=== PATIENT | female | born 1995 | race American Indian/Alaskan Native ===

== ENCOUNTER 2019-01-04 00:39 | Inpatient (IN) | payer OTHER, MEDICAID ==
[2019-01-04] MEDS ORDERED: MAGNESIUM SULFATE 40GM/1000ML 40 GM/1,000 ML BAG IV ONE (01:53)
[2019-01-04] MEDS ORDERED: APRESOLINE ONE (01:54)
[2019-01-04] MEDS ORDERED: LACTATED RINGERS 1,000 ML ONE (01:54)
[2019-01-04] MEDS ORDERED: MAGNESIUM SULFATE 4GM/100ML 4 GM/100 ML BAG IV ONE ×2 (01:54→04:42)
[2019-01-04 02:30] LABS: INR 0.85 (0.87-1.13); Partial Thromboplastin Time 26.4 Sec. (24.2-36.6)
[2019-01-04 02:43] LABS: Amorphous Crystals,Urine 3+; Amphetamine Screen,Urine PRESUMPTIVE NEGATIVE; Benzodiazepines Screen,Urine PRESUMPTIVE NEGATIVE; Bilirubin,Urine NEG (Negative); Blood,Urine SM (Negative); Cannabinoid Screen,Urine PRESUMPTIVE NEGATIVE; Cocaine Screen,Urine PRESUMPTIVE NEGATIVE; Color,Urine Yellow (Yellow); Hyaline Casts,Urine 45 /LPF; Methadone Screen,Urine PRESUMPTIVE NEGATIVE; Mucus,Urine 3+ /HPF; Opiate Screen,Urine PRESUMPTIVE NEGATIVE; Urobilinogen,Urine < 2.0 mg/dL (<2.0)
[2019-01-04 02:43] LABS: Hematocrit 39.8 % (30.3-42.9); Hemoglobin 13.6 gm/dl (10.1-14.3); Mean Corpuscular HGB Conc 34 % (30-34); Mean Corpuscular Volume 85 fl (79-97); Platelet Count 329 K/mm3 (140-440); Red Cell Distribution Width 14.3 % (13.2-15.2)
[2019-01-04] MEDS ORDERED: NORMODYNE IV ONE ×5 (02:44→14:47)
[2019-01-04 02:48] LABS: Hepatitis C Virus Antibody Non-Reactive (NonReactive)
[2019-01-04 02:49] LABS: Protein,Urine >500 mg/dL (Negative)
[2019-01-04 02:50] LABS: Alanine Aminotransferase 126 units/L (7-56)
[2019-01-04 02:53] LABS: Uric Acid 6.5 mg/dL (3.5-7.6)
[2019-01-04] MEDS: LACTATED RINGERS 1,000 ML IV SCH ×2 (02:55→07:00)
[2019-01-04] MEDS ORDERED: CELESTONE SOLUSPAN IM ONE (03:51)
[2019-01-04] MEDS ORDERED: STADOL IV ONE (04:44)
[2019-01-04] MEDS ORDERED: APRESOLINE IV ONE (04:45)
[2019-01-04] MEDS ORDERED: APRESOLINE IV PRN (04:45)
[2019-01-04] MEDS: MAGNESIUM SULFATE 40GM/1000ML 40 GM/1,000 ML BAG IV SCH (06:58)
--- NOTE | 2019-01-04 07:11 | Ultrasound Report ---
PROCEDURE: US OB >= 14 WEEKS FETUS TECHNIQUE: Routine transabdominal imaging was obtained of the pelvis with Doppler interrogation of t he fetus. HISTORY: well being COMPARISONS: None FINDINGS: The fetus is in cephalic presentation. The heart rate is 140 BPM. The MICHAEL is 10.7 cm which is n ormal. The placenta is anterior in position and is grade 2. There is no evidence of placental abrupti on. There are no gross anomalies involving the stomach, kidneys, bladder, diaphragm, four-chamb er view the heart or abdominal CORD insertion. Imaging of the spine and brain is limited because of t he positioning of the fetus. The estimated sonographic age is 33 weeks 3 days. The EDC is 02/19/2019. The estimated weight is 1723 g. The measured indices are unremarkable for the HC/AC ratio at 1.24 which is slightly elevated. The FL/BPD ratio is also diminished at 63.7. The cervix is close d. It measures 4.3 cm in length. IMPRESSION: Cephalic presentation, the heart rate is 140 BPM. No evidence of placental abruption. No gross anomalies. The neural anatomy is not well seen because of positioning of the fetus. Estimated sonographic age is 33 weeks 3 days. The EDC is 02/19/2019. Follow-up study recommended given the above the index ratios as described.. This document is electronically signed by Marciano Cooper MD., January 04 2019 07:09:37 AM ET
--- NOTE | 2019-01-04 07:52 | History and Physical Report ---
History of Present Illness Date of examination: 01/04/19 Date of admission: 01/04/2019 Chief complaint: abdominal pain History of present illness: 23y/o @ 32+4 weeks presents with the complaint of abdominal pain and lower extremity edema. The patient receives care @ [facility]. She states her had been uncomplicated until a few weeks ago she developed slightly elevated blood pressures that the OB was monitoring. Today in triage, the patient's blood pressures were severely elevated and her LFTs were abnormal. OB ultrasound is unremarkable. Patient is currently receiving IV anti- hypertensives and magnesium. She denies leakage of fluid or vaginal bleeding. One dose of steroids has been administered. Past History Past Medical History: no pertinent history Past Surgical History: no surgical history Social history: single - Obstetrical History Expected Date of Delivery: 02/25/19 Actual Gestation: 32 Week(s) 4 Day(s) : 2 Para: 0 Hx # Term Pregnancies: 0 Number of Pregnancies: 0 Spontaneous Abortions: 0 Induced : 1 Number of Living Children: 0 Medications and Allergies Allergies Allergy/AdvReac Type Severity Reaction Status Date / Time No Known Allergies Allergy Verified 01/04/19 01:36 Active Meds: Active Medications Betamethasone Acet/Betameth SodPhos (Celestone Soluspan) 12 mg IM Q24HR JUNIOR Stop: 01/05/19 10:01 Last Admin: 01/04/19 03:57 Dose: 12 mg Documented by: Hydralazine HCl (Apresoline) 10 mg IV Q10MIN PRN PRN Reason: elevated b/p Lactated Ringer's (Lactated Ringers) 1,000 mls @ 75 mls/hr IV DIRECT JUNIOR Last Admin: 01/04/19 07:00 Dose: 75 mls/hr Documented by: Magnesium Sulfate (Magnesium Sulfate 40gm/1000ml) 40 gm in 1,000 mls @ 50 mls/hr IV DIRECT JUNIOR Last Admin: 01/04/19 06:58 Dose: 2 gm/hr, 50 mls/hr Documented by: Review of Systems All systems: negative Gastrointestinal: abdominal pain - Vital Signs Vital signs: Vital Signs Pulse Pulse Ox 89 98 01/04/19 01:16 01/04/19 01:16 Temp Pulse Resp BP Pulse Ox 97.4 F L 102 H 18 152/102 96 01/04/19 02:12 01/04/19 07:44 01/04/19 05:06 01/04/19 07:32 01/04/19 07:44 - Physical Exam Breasts: Positive: deferred Cardiovascular: Regular rate Lungs: Positive: Clear to auscultation Results Result Diagrams: 01/04/19 02:00 01/04/19 02:00 Abnormal lab results 01/04/19 01/04/19 01/04/19 Range/Units 02:00 02:00 02:00 WBC 14.2 H (4.5-11.0) K/mm3 PT 12.1 L (12.2-14.9) Sec. INR 0.85 L (0.87-1.13) AST 205 H (5-40) units/L ALT 126 H (7-56) units/L Lactate Dehydrogenase 1419 H (91-180) units/L Urine WBC (Auto) (0.0-6.0) /HPF 01/04/19 Range/Units 02:21 WBC (4.5-11.0) K/mm3 PT (12.2-14.9) Sec. INR (0.87-1.13) AST (5-40) units/L ALT (7-56) units/L Lactate Dehydrogenase (91-180) units/L Urine WBC (Auto) 28.0 H (0.0-6.0) /HPF All other labs normal. Assessment and Plan - Patient Problems (1) HELLP syndrome Current Visit: Yes Status: Acute Plan to address problem: will redraw labs to confirm findings delivery has been discussed with patient (2) Abdominal pain affecting Current Visit: Yes Status: Acute
[2019-01-04 08:27] LABS: Hemoglobin 13.3 gm/dl (10.1-14.3); Mean Corpuscular HGB Conc 33 % (30-34); Mean Corpuscular Volume 86 fl (79-97); Platelet Count 148 K/mm3 (140-440); Red Blood Count 4.65 M/mm3 (3.65-5.03)
[2019-01-04 08:53] LABS: Alanine Aminotransferase 255 units/L (7-56); Albumin 3.3 g/dL (3.9-5); BUN/Creatinine Ratio 13; Blood Urea Nitrogen 8 mg/dL (7-17); Calcium 9.2 mg/dL (8.4-10.2); Hemolysis Index 19; Uric Acid 6.8 mg/dL (3.5-7.6)
[2019-01-04] MEDS ORDERED: PEPCID IV ONE (09:09)
[2019-01-04] MEDS ORDERED: BICITRA PO ONE (09:09)
[2019-01-04] MEDS ORDERED: REGLAN IV ONE (09:09)
--- NOTE | 2019-01-04 09:09 | Event Note ---
Date: 01/04/19 Repeat labs reviewed with worsening of clinical status. Will proceed with primary delivery gonzales. Charge nurse made aware.
[2019-01-04] MEDS ORDERED: ZOFRAN IV PRN (09:32)
[2019-01-04] MEDS ORDERED: NARCAN 0.4 MG/1 ML IV PRN ×2 (09:32→11:12)
[2019-01-04] MEDS ORDERED: PHENERGAN PO PRN (09:32)
[2019-01-04] MEDS ORDERED: BENADRYL IV PRN (09:32)
[2019-01-04] MEDS ORDERED: DILAUDID IV PRN ×2 (09:32)
[2019-01-04] MEDS ORDERED: PHENERGAN PR PRN (09:32)
[2019-01-04] MEDS ORDERED: SUBLIMAZE ONE (09:50)
--- NOTE | 2019-01-04 09:58 | Procedure Note ---
OB Delivery Note - Delivery Date of Delivery: 01/04/19 Surgeon: ANABEL SEVERINO Estimated blood loss: other (800ml) - Section Preop diagnosis: other Postop diagnosis: same section procedure: section, primary low transverse Disposition: PACU Complications: none - A at 1 minute: 8 at 5 minutes: 9 Infant Gender: Male (weight of 4 lbs. 2 oz.)
[2019-01-04] MEDS ORDERED: ANCEF/STERILE WATER 2 GM/20 ML 2 GM/20 ML SYRINGE IV NR (10:00)
[2019-01-04] MEDS ORDERED: LACTATED RINGERS 1,000 ML IV SCH (10:00)
[2019-01-04] MEDS ORDERED: CELESTONE SOLUSPAN IM SCH (10:00)
[2019-01-04] MEDS ORDERED: PITOCin/NS 20 UNIT/1000ML DRIP 20 UNITS/1,000 ML BAG IV SCH ×2 (10:00→12:00)
[2019-01-04] MEDS ORDERED: SODIUM CHLORIDE FLUSH SYRINGE 10 ML IV NR ×2 (10:00→12:00)
--- NOTE | 2019-01-04 10:00 | Operative Report ---
Operative Report Operative Report: Date of surgery: 01/04/2019 Preoperative diagnosis: at 32+4 weeks; HELLP syndrome; Postoperative diagnosis: Same as above Procedure: Primary low-transverse delivery Surgeon: Yasmin Melara M.D. Anesthesia: Regional Estimated blood loss: 800 mL IV fluids 800 mL Urine output 100 mL Findings: Liveborn male with Apgars of 8 and 9 weight 4 lbs. 2 oz. Indications: 23-year-old at 32+4 weeks who presents with onset of right upper quadrant pain and was found to have severely elevated blood pressures. Her clinical status was consistent with HELLP syndrome. Procedure: The patient was taken to the operating room and given regional anesthesia without complication. She was prepped and draped in a normal sterile fashion. A Pfannenstiel skin incision was made down to layer the fascia which was nicked in the midline extended laterally with the Bovie cautery. The superior aspect of the rectus fascia was grasped with Guerline clamps x2 and the rectus muscles off sharply. This was done in inferior fashion as well. The rectus muscle midline and peritoneum entered bluntly. An Dustin retractor was then inserted. A bladder blade was placed. The vesicouterine peritoneum was then entered sharply with Metzenbaum scissors. A bladder flap was created digitally. A low transverse uterine incision was then made and extended digitally. There was clear fluid upon entry into the uterine cavity. The head was delivered through the incision with fundal pressure. Cord clamping was delayed. The cord was clamped and cut x2 and was passed off to pediatrics. The placenta was then manually extracted. The uterus was then exteriorized and cleared of clots and debris. The uterine incision was then closed in a running locked fashion with 0 Vicryl additional imbricating stitch was applied for 2 layer closure. The posterior cul-de-sac was then copiously irrigated. The uterus was replaced back into the abdomen and pelvis were the gutters were then irrigated. The Dustin retractor was then removed. The peritoneum was then reapproximated with 3-0 Vicryl incorporating the rectus muscle. The fascia was then closed with 0 Vicryl in a running fashion. The skin was then reapproximated with 3-0 Monocryl on a Santy needle subcuticular fashion. Steri-Strips to place across the incision and a Crede procedures performed at the end of the surgery. A pressure dressing was applied to the incision. The surgery productive of a liveborn male infant with Apgars of 8 and 9 weight 4 lbs. 2 oz. The patient was taken to the recovery room in stable condition. All sponge laps and needle counts correct x2.
[2019-01-04] MEDS ORDERED: ANCEF IV ONE (10:10)
[2019-01-04] MEDS ORDERED: TORADOL ONE (10:48)
[2019-01-04] MEDS ORDERED: IBUPROFEN PO PRN (11:12)
[2019-01-04] MEDS ORDERED: TYLENOL PO PRN (11:12)
[2019-01-04] MEDS ORDERED: TUCKS PAD TP PRN (11:12)
[2019-01-04] MEDS ORDERED: LANSINOH TP PRN (11:12)
--- NOTE | 2019-01-04 11:38 | Anesthesia Consultation ---
Anesthesia Consult and Med Hx Date of service: 01/04/19 - Airway Anesthetic Teeth Evaluation: Good ROM Head & Neck: Adequate Mental/Hyoid Distance: Adequate Mallampati Class: Class III Intubation Access Assessment: Probably Good - Pulmonary Exam CTA: Yes - Cardiac Exam Cardiac Exam: RRR - Pre-Operative Health Status ASA Pre-Surgery Classification: ASA3 Proposed Anesthetic Plan: Spinal - Pulmonary Hx Smoking: No Hx Asthma: No Hx Respiratory Symptoms: No SOB: No COPD: No Home Oxygen Therapy: No Hx Pneumonia: No Hx Sleep Apnea: No - Cardiovascular System Hx Hypertension: Yes (PIH) Hx Coronary Artery Disease: No Hx Heart Attack/AMI: No Hx Angina: No Hx Percutaneous Transluminal Coronary Angioplasty (PTCA): No Hx Cardia Arrhythmia: No Hx Pacemaker: No Hx Internal Defibrillator: No Hx Valvular Heart Disease: No Hx Heart Murmur: No Hx Peripheral Vascular Disease: No - Central Nervous System Hx Neuromuscular Disorder: No Hx Seizures: No CVA: No Hx Back Pain: Yes Hx Psychiatric Problems: No - Gastrointestinal Hx Ulcer: No Hx Gastroesophageal Reflux Disease: Yes - Endocrine Hx Renal Disease: No Hx End Stage Renal Disease: No Hx Cirrhosis: No Hx Liver Disease: No Hx Insulin Dependent Diabetes: No Hx Non-Insulin Dependent Diabetes: No Hx Hypothyroidism: No Hx Hyperthyroidism: No - Hematic Hx Anemia: No Hx Sickle Cell Disease: No - Other Systems Hx Alcohol Use: No Hx Substance Use: No Hx Cancer: No Hx Obesity: Yes (BMI 34)
--- NOTE | 2019-01-04 11:39 | Anesthesia Day of Surgery ---
Anesthesia Day of Surgery - Day of Surgery Patient Examined: Yes Patient H&P Reviewed: Yes Patient is NPO: Yes Beta Blockers: Yes (PI) Cardiac Clearance: No Pulmonary Clearance: No Stephane's Test: N/A
--- NOTE | 2019-01-04 11:40 | Post Anesthesia Evaluation ---
- Post Anesthesia Evaluation Patient Participated: Yes Airway Patent: Yes Stable Respiratory Function: Yes Nausea/Vomiting: No Temp > 96.8F: Yes Pain Manageable: Yes Adequeate Hydration: Yes Anesthesia Complications: No Block Receding Appropriately: Yes Patient on Ventilator: No
[2019-01-04] MEDS ORDERED: D5LR 1,000 ML IV SCH (12:00)
[2019-01-04] MEDS: APRESOLINE IV PRN ×2 (13:45→18:06)
[2019-01-04 17:23] LABS: Hematocrit 37.6 % (30.3-42.9); Hemoglobin 12.4 gm/dl (10.1-14.3); Mean Corpuscular HGB Conc 33 % (30-34); Mean Corpuscular Volume 86 fl (79-97); Red Cell Distribution Width 14.3 % (13.2-15.2)
[2019-01-04 17:41] LABS: Alanine Aminotransferase 179 units/L (7-56); Albumin 3.1 g/dL (3.9-5); BUN/Creatinine Ratio 16; Blood Urea Nitrogen 11 mg/dL (7-17); Calcium 8.2 mg/dL (8.4-10.2); Hemolysis Index 47
[2019-01-04] MEDS: TORADOL IV PRN ×2 (17:50→23:27)
[2019-01-04 18:03] LABS: Platelet Count 154 K/mm3 (140-440)
[2019-01-04] MEDS ORDERED: NORMODYNE IV PRN (20:00)
[2019-01-04] MEDS: PERCOCET 5/325 PO PRN (20:43)
[2019-01-05] MEDS: PERCOCET 5/325 PO PRN ×3 (05:24→16:12)
[2019-01-05] MEDS: MAGNESIUM SULFATE 40GM/1000ML 40 GM/1,000 ML BAG IV SCH (08:43)
--- NOTE | 2019-01-05 08:57 | Progress Note ---
Assessment and Plan A: POD#1 s/p primary section at 32 wks secondary to HELLP syndrome on magensium sulfate P: Complete 24 hrs magnesium sulfate after delivery. Routine postop care. Avoid NSAIDs. Subjective - Subjective Date of service: 01/05/19 Principal diagnosis: s/p primary at 32 wks for HELLP syndrome Interval history: Pt c/o headache this morning. She denies blurry vision and RUQ pain. Pain well- controlled. Receiving magnesium sulfate. Patient reports: appetite normal, no voiding normally (roberto in place ), no flatus, no bowel movement, no ambulating normally (SCDs in place ) : in NICU Objective - Vital Signs Latest vital signs: Vital Signs Temp Pulse Resp BP BP Pulse Ox 01/05/19 08:49 97 H 98 01/05/19 08:47 93 H 146/93 01/05/19 08:44 95 H 98 01/05/19 08:39 99 H 98 01/05/19 08:34 99 H 97 01/05/19 08:32 100 H 136/91 01/05/19 08:29 97 H 99 01/05/19 08:24 100 H 97 01/05/19 08:19 102 H 98 01/05/19 08:17 92 H 135/87 01/05/19 08:14 94 H 99 01/05/19 08:09 99 H 99 01/05/19 08:04 96 H 98 01/05/19 08:02 94 H 136/89 01/05/19 07:59 96 H 98 01/05/19 07:54 94 H 97 01/05/19 07:49 96 H 98 01/05/19 07:47 94 H 132/85 01/05/19 07:44 91 H 98 01/05/19 07:42 98 H 93 01/05/19 07:39 97 H 97 01/05/19 07:34 93 H 97 01/05/19 07:32 91 H 131/89 01/05/19 07:29 92 H 98 01/05/19 07:24 96 H 97 01/05/19 07:19 101 H 98 01/05/19 07:17 94 H 129/80 01/05/19 07:14 90 99 01/05/19 07:09 92 H 100 01/05/19 07:04 97 H 97 01/05/19 07:02 96 H 125/82 01/05/19 06:59 95 H 99 01/05/19 06:54 96 H 98 01/05/19 06:49 99 H 98 01/05/19 06:47 104 H 124/77 01/05/19 06:44 102 H 98 01/05/19 06:39 101 H 98 01/05/19 06:34 100 H 97 01/05/19 06:32 102 H 124/75 01/05/19 06:29 99 H 97 01/05/19 06:24 101 H 97 01/05/19 06:19 100 H 97 01/05/19 06:17 98 H 131/77 01/05/19 06:14 101 H 97 01/05/19 06:09 97 H 97 01/05/19 06:04 98 H 97 01/05/19 06:02 95 H 132/82 01/05/19 05:59 97 H 98 01/05/19 05:54 97 H 97 01/05/19 05:49 98 H 96 01/05/19 05:47 96 H 140/87 01/05/19 05:44 100 H 97 01/05/19 05:39 100 H 98 01/05/19 05:34 96 H 98 01/05/19 05:32 100 H 151/95 01/05/19 05:29 105 H 98 01/05/19 05:24 97 H 98 01/05/19 05:19 102 H 97 01/05/19 05:17 93 H 147/93 01/05/19 05:14 96 H 97 01/05/19 05:09 93 H 97 01/05/19 05:04 97 H 98 01/05/19 05:02 93 H 148/96 01/05/19 04:59 94 H 98 01/05/19 04:54 100 H 99 01/05/19 04:49 101 H 98 01/05/19 04:47 64 89 01/05/19 04:46 93 H 143/90 01/05/19 04:44 99 H 95 01/05/19 04:40 96 H 94 01/05/19 04:39 101 H 96 01/05/19 04:34 101 H 96 01/05/19 04:28 96 H 97 06/07/19 04:23 94 H 97 01/05/19 04:18 93 H 97 01/05/19 04:17 51 L 124/62 01/05/19 04:13 92 H 97 01/05/19 04:08 94 H 97 01/05/19 04:03 93 H 96 01/05/19 04:02 96 H 132/71 01/05/19 03:58 96 H 98 01/05/19 03:53 90 98 01/05/19 03:48 101 H 98 01/05/19 03:47 95 H 141/80 01/05/19 03:43 95 H 96 01/05/19 03:38 95 H 97 01/05/19 03:33 96 H 96 01/05/19 03:32 95 H 141/76 01/05/19 03:28 95 H 97 01/05/19 03:23 93 H 97 01/05/19 03:18 94 H 96 01/05/19 03:17 92 H 140/78 01/05/19 03:13 92 H 97 01/05/19 03:08 98 H 96 01/05/19 03:07 96 H 94 01/05/19 03:03 94 H 95 01/05/19 03:02 93 H 138/76 01/05/19 02:58 93 H 96 01/05/19 02:53 91 H 96 01/05/19 02:48 93 H 96 01/05/19 02:47 101 H 134/70 01/05/19 02:43 95 H 99 01/05/19 02:38 93 H 99 01/05/19 02:33 97 H 98 01/05/19 02:32 94 H 138/76 01/05/19 02:28 92 H 99 01/05/19 02:23 97 H 97 01/05/19 02:19 71 85 01/05/19 02:18 94 H 98 01/05/19 02:17 93 H 131/69 01/05/19 02:13 94 H 99 01/05/19 02:08 93 H 99 01/05/19 02:03 101 H 98 01/05/19 02:02 96 H 139/71 01/05/19 01:58 100 H 98 01/05/19 01:53 98 H 98 01/05/19 01:48 97 H 99 01/05/19 01:47 96 H 137/79 01/05/19 01:43 99 H 99 01/05/19 01:38 107 H 98 01/05/19 01:37 105 H 94 01/05/19 01:33 105 H 96 01/05/19 01:32 108 H 145/87 93 01/05/19 01:28 99 H 95 01/05/19 01:23 97 H 95 01/05/19 01:18 95 H 96 01/05/19 01:17 95 H 141/81 01/05/19 01:13 96 H 95 01/05/19 01:08 97 H 96 01/05/19 01:03 98 H 95 01/05/19 01:02 96 H 140/79 01/05/19 00:58 96 H 97 01/05/19 00:56 101 H 94 01/05/19 00:53 99 H 96 01/05/19 00:48 99 H 98 01/05/19 00:47 100 H 153/80 01/05/19 00:43 104 H 97 01/05/19 00:38 101 H 96 01/05/19 00:33 101 H 96 01/05/19 00:32 101 H 143/76 01/05/19 00:28 99 H 97 01/05/19 00:23 102 H 96 01/05/19 00:18 98 H 97 01/05/19 00:17 102 H 147/78 01/05/19 00:13 100 H 97 01/05/19 00:08 102 H 98 01/05/19 00:03 105 H 96 01/05/19 00:02 102 H 150/80 01/04/19 23:58 104 H 97 01/04/19 23:53 103 H 97 01/04/19 23:48 103 H 97 01/04/19 23:47 104 H 154/87 01/04/19 23:43 101 H 98 01/04/19 23:38 106 H 97 01/04/19 23:33 106 H 161/92 97 01/04/19 23:32 101 H 161/93 01/04/19 23:31 98.4 F 102 H 16 161/92 96 01/04/19 23:28 102 H 96 01/04/19 23:23 102 H 95 01/04/19 23:18 106 H 98 01/04/19 23:17 100 H 148/90 01/04/19 23:13 104 H 99 01/04/19 23:08 107 H 99 01/04/19 23:03 101 H 98 01/04/19 22:58 102 H 96 01/04/19 22:57 101 H 152/89 01/04/19 22:53 101 H 98 01/04/19 22:48 103 H 96 01/04/19 22:43 99 H 97 01/04/19 22:42 101 H 154/87 01/04/19 22:38 105 H 96 01/04/19 22:33 103 H 97 01/04/19 22:28 103 H 96 01/04/19 22:27 101 H 143/81 01/04/19 22:23 103 H 95 01/04/19 22:18 101 H 96 01/04/19 22:13 106 H 96 01/04/19 22:12 104 H 143/79 01/04/19 22:08 105 H 96 01/04/19 22:03 103 H 96 01/04/19 21:58 103 H 96 01/04/19 21:57 104 H 146/81 01/04/19 21:53 102 H 96 01/04/19 21:48 103 H 97 01/04/19 21:43 103 H 96 01/04/19 21:42 102 H 149/79 01/04/19 21:38 104 H 96 01/04/19 21:33 104 H 96 01/04/19 21:28 106 H 96 01/04/19 21:27 110 H 150/79 01/04/19 21:23 105 H 97 01/04/19 21:18 106 H 96 01/04/19 21:13 104 H 96 01/04/19 21:12 103 H 156/83 01/04/19 21:08 109 H 96 01/04/19 21:03 116 H 98 01/04/19 20:58 105 H 97 01/04/19 20:57 106 H 156/85 01/04/19 20:53 104 H 97 01/04/19 20:48 109 H 98 01/04/19 20:43 110 H 98 01/04/19 20:42 113 H 165/86 01/04/19 20:38 108 H 98 01/04/19 20:33 108 H 96 06/06/19 20:28 109 H 96 01/04/19 20:27 108 H 160/86 01/04/19 20:23 109 H 97 01/04/19 20:18 108 H 96 01/04/19 20:13 110 H 96 01/04/19 20:12 108 H 160/89 01/04/19 20:08 112 H 96 01/04/19 20:03 111 H 94 01/04/19 19:58 111 H 94 01/04/19 19:57 111 H 156/89 01/04/19 19:53 110 H 95 01/04/19 19:51 109 H 94 01/04/19 19:48 107 H 94 01/04/19 19:46 109 H 94 01/04/19 19:43 109 H 95 01/04/19 19:42 109 H 161/88 01/04/19 19:39 113 H 93 01/04/19 19:38 109 H 95 01/04/19 19:33 108 H 96 01/04/19 19:29 97.7 F 109 H 16 156/84 96 01/04/19 19:28 107 H 96 01/04/19 19:27 110 H 156/84 01/04/19 19:23 107 H 148/81 96 01/04/19 19:18 107 H 95 01/04/19 19:13 106 H 96 01/04/19 19:12 107 H 155/85 01/04/19 19:08 109 H 95 01/04/19 19:03 109 H 95 01/04/19 18:58 110 H 96 01/04/19 18:57 108 H 157/88 01/04/19 18:53 109 H 95 01/04/19 18:48 110 H 95 01/04/19 18:43 106 H 94 01/04/19 18:42 107 H 163/95 01/04/19 18:37 98.1 F 01/04/19 18:27 107 H 159/96 01/04/19 18:17 109 H 96 01/04/19 18:12 106 H 161/102 96 01/04/19 18:07 102 H 96 01/04/19 18:06 103 H 163/102 01/04/19 18:02 105 H 95 01/04/19 17:57 106 H 97 01/04/19 17:56 105 H 163/102 01/04/19 17:52 107 H 96 01/04/19 17:47 107 H 97 01/04/19 17:43 107 H 169/106 01/04/19 17:42 106 H 97 01/04/19 17:37 107 H 98 01/04/19 17:32 107 H 98 01/04/19 17:27 106 H 98 01/04/19 17:06 113 H 94 01/04/19 17:02 105 H 96 01/04/19 16:57 108 H 96 01/04/19 16:55 106 H 94 01/04/19 16:52 107 H 94 01/04/19 16:50 107 H 94 01/04/19 16:47 105 H 94 01/04/19 16:42 108 H 95 01/04/19 16:41 108 H 94 01/04/19 16:37 107 H 95 01/04/19 16:32 102 H 95 01/04/19 16:27 105 H 157/98 95 01/04/19 16:22 104 H 96 01/04/19 16:17 105 H 95 01/04/19 16:12 104 H 156/97 95 01/04/19 16:07 103 H 95 01/04/19 16:02 102 H 96 01/04/19 15:57 104 H 160/99 95 01/04/19 15:52 104 H 94 01/04/19 15:51 103 H 94 01/04/19 15:47 102 H 95 01/04/19 15:45 104 H 94 01/04/19 15:42 102 H 155/96 95 01/04/19 15:39 103 H 94 01/04/19 15:37 102 H 95 01/04/19 15:34 102 H 94 01/04/19 15:32 102 H 94 01/04/19 15:27 100 H 146/89 96 01/04/19 15:22 102 H 96 01/04/19 15:17 101 H 96 01/04/19 15:12 102 H 152/95 96 01/04/19 15:07 102 H 96 01/04/19 15:02 101 H 95 01/04/19 14:57 99 H 96 01/04/19 14:56 98 H 157/97 94 01/04/19 14:52 105 H 96 01/04/19 14:48 115 H 170/101 01/04/19 14:47 116 H 97 01/04/19 14:42 120 H 170/101 96 01/04/19 14:37 113 H 97 01/04/19 14:35 99.3 F 01/04/19 14:32 115 H 97 01/04/19 14:27 116 H 97 01/04/19 14:22 117 H 166/98 96 01/04/19 14:17 120 H 96 01/04/19 14:12 115 H 162/97 96 01/04/19 14:07 111 H 96 01/04/19 14:02 106 H 97 01/04/19 13:57 106 H 97 01/04/19 13:56 103 H 166/102 01/04/19 13:45 96 H 164/103 01/04/19 12:30 98.6 F 01/04/19 12:20 94 H 18 137/98 98 01/04/19 12:05 91 H 13 136/94 98 01/04/19 11:50 90 16 138/89 100 01/04/19 11:35 96 H 15 125/91 98 01/04/19 11:30 93 H 15 132/90 98 01/04/19 11:25 92 H 15 135/86 97 01/04/19 11:20 98.0 F 95 H 29 H 137/88 01/04/19 10:01 100 H 170/106 01/04/19 09:47 101 H 176/105 01/04/19 09:26 104 H 98 01/04/19 09:24 109 H 93 01/04/19 09:21 109 H 98 01/04/19 09:17 96 H 158/94 01/04/19 09:16 98 H 98 01/04/19 09:15 103 H 93 01/04/19 09:11 106 H 97 01/04/19 09:09 102 H 94 01/04/19 09:06 99 H 96 01/04/19 09:01 99 H 157/94 95 01/04/19 08:56 101 H 96 Intake and Output 01/04/19 01/05/19 01/05/19 22:59 06:59 14:59 Intake Total 748.333 Output Total 042 706 1993 Balance -765 548.333 -1100 Intake: IV 748.333 MAGNESIUM SULFATE 40GM/ 748.333 1000ML 40 gm In 1,000 ml @ 2 GM/HR 50 mls/hr IV DIRECT JUNIOR Rx#:[id number] Output: Urine 226 [id number] Indwelling Catheter 015 486 4256 Other: Total, Output Amount [phone] - Exam Breasts: Present: deferred Cardiovascular: Present: Regular rate Lungs: Present: Clear to auscultation Abdomen: Present: soft (obese, ), distention (mild ), abnormal bowel sounds (hypoactive ) Uterus: Present: fundal height at umbilicus Extremities: Present: edema (trace) Incision: Present: dressed - Labs Labs: Abnormal lab results 01/04/19 01/04/19 01/04/19 Range/Units 08:15 17:03 17:03 WBC 23.7 H (4.5-11.0) K/mm3 Sodium 133 L (137-145) mmol/L Carbon Dioxide 21 L 16 L (22-30) mmol/L Creatinine 0.6 L (0.7-1.2) mg/dL Glucose 102 H 112 H (65-100) mg/dL Calcium 8.2 L (8.4-10.2) mg/dL Magnesium (1.7-2.3) mg/dL AST 334 H 202 H (5-40) units/L ALT 255 H 179 H (7-56) units/L Alkaline Phosphatase 196 H 176 H (35-129) units/L Total Protein 6.0 L (6.3-8.2) g/dL Albumin 3.3 L 3.1 L (3.9-5) g/dL 01/04/19 Range/Units 17:03 WBC (4.5-11.0) K/mm3 Sodium (137-145) mmol/L Carbon Dioxide (22-30) mmol/L Creatinine (0.7-1.2) mg/dL Glucose (65-100) mg/dL Calcium (8.4-10.2) mg/dL Magnesium 4.50 H (1.7-2.3) mg/dL AST (5-40) units/L ALT (7-56) units/L Alkaline Phosphatase (35-129) units/L Total Protein (6.3-8.2) g/dL Albumin (3.9-5) g/dL
[2019-01-05 10:51] LABS: Hematocrit 36.9 % (30.3-42.9); Hemoglobin 12.2 gm/dl (10.1-14.3); Mean Corpuscular HGB Conc 33 % (30-34); Mean Corpuscular Volume 86 fl (79-97); Red Blood Count 4.29 M/mm3 (3.65-5.03); Red Cell Distribution Width 14.7 % (13.2-15.2)
[2019-01-05 11:07] LABS: Alanine Aminotransferase 116 units/L (7-56); BUN/Creatinine Ratio 14; Blood Urea Nitrogen 10 mg/dL (7-17); Calcium 7.3 mg/dL (8.4-10.2); Hemolysis Index 14
[2019-01-05 12:00] LABS: Platelet Count 192 K/mm3 (140-440)
[2019-01-05] MEDS ORDERED: MILK OF MAGNESIA PO PRN (22:13)
[2019-01-06] MEDS: NORMODYNE PO SCH ×3 (00:25→21:14)
[2019-01-06] MEDS: PERCOCET 5/325 PO PRN ×3 (00:27→20:16)
--- NOTE | 2019-01-06 13:12 | Progress Note ---
Assessment and Plan A: POD#2 s/p primary section at 32 wks secondary to HELLP syndrome s/p 24 hrs magensium sulfate P: Routine postoperative care. Begin bowel regimen. Continue to monitor clinically. Subjective - Subjective Date of service: 01/06/19 Principal diagnosis: s/p primary at 32 wks for HELLP syndrome Interval history: Pt without complaints this morning. +flatus. No bowel movement. Patient reports: appetite normal, voiding normally, pain well controlled, flatus, ambulating normally, no bowel movement [place]: in NICU Objective - Vital Signs Latest vital signs: Vital Signs Temp Pulse Resp BP BP Pulse Ox 01/06/19 10:16 114 H 152/96 01/06/19 09:03 98.2 F 105 H 20 152/96 96 01/06/19 05:45 20 01/06/19 03:15 98.1 F 108 H 18 135/72 94 01/06/19 00:27 20 01/06/19 00:25 104 H 148/96 01/05/19 23:34 98.8 F 110 H 18 140/88 95 01/05/19 18:42 97.8 F 100 H 20 150/95 99 Intake and Output 01/05/19 01/06/19 01/06/19 22:59 06:59 14:59 Intake Total 720 120 Output Total 450 Balance 270 120 Intake: Oral 120 Intake, Free Water 600 120 Output: Urine 450 Void 450 Other: Total, Intake Amount 120 Total, Output Amount 450 # Voids Void 1 1 - Exam Breasts: Present: deferred Cardiovascular: Present: Regular rate Lungs: Present: Clear to auscultation Abdomen: Present: soft (obese ). Absent: distention Uterus: Present: fundal height below umbilicus Extremities: Present: edema (trace ) Incision: Present: intact (with steristrips )
[2019-01-06] MEDS: COLACE PO SCH (21:13)
[2019-01-06] MEDS ORDERED: NORMODYNE PO SCH (21:31)
[2019-01-06] MEDS ORDERED: NORMODYNE PO ONE (22:30)
[2019-01-07] MEDS: COLACE PO SCH (09:14)
[2019-01-07] MEDS ORDERED: NORMODYNE PO SCH (10:00)
[2019-01-07] MEDS: PERCOCET 5/325 PO PRN (11:04)
--- NOTE | 2019-01-07 11:51 | Discharge Summary ---
Providers - Providers Date of Admission: 01/04/19 00:40 Date of discharge: 01/07/19 Attending physician: ANABEL SEVERINO Primary care physician: ANABEL SEVERINO Hospitalization Reason for admission: other (abdominal pain, lower extremity edema ) Delivery: Procedure: section, primary low transverse Procedure details: Please see operative note. Incision: intact (with steristrips ) Other procedures: none complications: none Discharge diagnosis: delivery [place] baby: male Hospital course: Pt was admitted with abdominal pain and lower extremity edema and found to have HELLP syndrome. She underwent primary low transverse section which she tolerated well. She received IV magnesium sulfate for 24 hrs after delivery. The remainder of her hospital course was uncomplicated and she met discharge criteria on POD#3. She was started on Labetalol 400 mg BID during this hospitalization. She will be discharged today with follow up in one week for a blood pressure check and CBC. Condition at discharge: Stable Disposition: [id number] TO HOME OR SELFCARE - Discharge Diagnoses (1) delivery Status: Acute (2) S/P section Status: Acute (3) Obesity Status: Acute Qualifiers: Obesity type: unspecified obesity type Obesity classification: adult class 1 (BMI 30 - 34.9) Serious obesity comorbidity presence: unspecified whether serious comorbidity present Body mass index: BMI 34.0-34.9 Qualified Code(s): E66.9 - Obesity, unspecified; Z68.34 - Body mass index (BMI) 34.0-34.9, adult (4) Abdominal pain affecting Status: Acute (5) HELLP syndrome Status: Acute Qualifiers: Trimester: third trimester Qualified Code(s): O14.23 - HELLP syndrome (HELLP), third trimester Plan - Discharge Medications Prescriptions: Docusate Sodium [Colace] 100 mg PO BID PRN #60 capsule PRN Reason: Constipation Ferrous Sulfate [Feosol 325 MG tab] 325 mg PO BID #60 tablet Labetalol [Labetalol 200mg TAB] 400 mg PO BID #120 tablet oxyCODONE /ACETAMINOPHEN [Percocet 5/325] 1 tab PO Q6HR PRN #40 tablet PRN Reason: Pain - Provider Discharge Summary Activity: routine, no sex for 6 weeks, no heavy lifting 4 weeks, no strenuous exercise Diet: routine Instructions: routine Additional instructions: [] Smoking cessation referral if applicable(refer to patient education folder for contact #) [] Refer to [facility]'s [facility] Booklet Call your doctor immediately for: * Fever > 100.5 * Heavy vaginal bleeding ( >1 pad per hour) * Severe persistent headache * Shortness of breath * Reddened, hot, painful area to leg or breast * Drainage or odor from incision. * Keep incision clean and dry at all times and follow doctor's instructions regarding bathing/showering - Follow up plan Follow up: LORENZA ANDERSEN MD [Staff Physician] - 7 Days (Please call the office to schedule a postiop visit for blood pressure check and CBC ) Forms: [facility] Discharge Summary
--- NOTE | 2019-01-07 11:51 | Progress Note ---
Assessment and Plan A: POD#3 s/p primary section at 32 wks secondary to HELLP syndrome s/p 24 hrs magensium sulfate P: Routine postoperative care. Discharge today with follow up in 1 week for blood pressure check. Subjective - Subjective Date of service: 01/07/19 Principal diagnosis: s/p primary at 32 wks for HELLP syndrome Interval history: No complaints today. Bowel movement yesterday. Baby doing well in the NICU. Labetalol increased to 400 mg BID overnight. Patient reports: appetite normal, voiding normally, pain well controlled, flatus, bowel movement, ambulating normally : in NICU Objective - Vital Signs Latest vital signs: Vital Signs Temp Pulse Resp BP BP Pulse Ox 01/07/19 08:30 99.1 F 94 H 20 146/102 96 01/07/19 05:30 98.8 F 102 H 18 138/88 95 01/07/19 01:30 98.1 F 99 H 18 116/77 95 01/06/19 23:01 99 H 143/94 01/06/19 21:14 99 H 159/104 01/06/19 20:50 98.6 F 106 H 18 147/95 95 01/06/19 20:16 20 01/06/19 17:16 102 H 152/102 97 Intake and Output 01/06/19 01/07/19 01/07/19 22:59 06:59 14:59 Intake Total 240 360 600 Balance 240 360 600 Intake: Oral 120 Intake, Free Water 240 360 480 Other: Total, Intake Amount 120 # Voids Void 2 1 2 # Bowel Movements 1 - Exam Breasts: Present: deferred Cardiovascular: Present: Regular rate Lungs: Present: Clear to auscultation Abdomen: Present: soft (obese ) Uterus: Present: fundal height below umbilicus Extremities: Present: edema (trace) Incision: Present: intact
[2019-01-07 17:55] VITALS: BP 154/95
== END 2019-01-07 19:15 | disposition home or self-care (01) | DRG 788 ==
LOC: TRG 00:39 → LD 00:40 → TRG 00:46 → LD 01:47 → TRG 09:35 → OB 01-05 12:14 → LD 01-05 12:16 → OB 01-05 12:17
PROVIDERS: ADMIT Obstetrics & Gynecology; ATTEND Obstetrics & Gynecology
PROC: 10D00Z1 Extraction of Products of Conception, Low, Open Approach (ICD-10-PCS; principal; 2019-01-04)
DX: O60.14X0 Preterm labor third trimester with preterm delivery third trimester, not applicable or unspecified (principal); O14.24 HELLP syndrome, complicating childbirth; O99.214 Obesity complicating childbirth; E66.9 Obesity, unspecified; O99.62 Diseases of the digestive system complicating childbirth; O13.4 Gestational [pregnancy-induced] hypertension without significant proteinuria, complicating childbirth; K21.9 Gastro-esophageal reflux disease without esophagitis; Z37.0 Single live birth; Z3A.32 32 weeks gestation of pregnancy
CPT/HCPCS: 36415; 76805; 80053; 80307; 81001; 82565; 83615; 83735; 84450; 84460; 84550; 85027; 85610; 85730; 86592; 86706; 86762; 86803; 86850; 86900; 86901; 87086; 87806; 88307; G0378; A6250; J0360; J0595; J0690; J0702; J1170; J1885; J2405; J2590; J2765; J3010; J3475; J7120